=== PATIENT | female | born 1975 | race Caucasian/White ===

== ENCOUNTER → 2016-08-17 | Outpatient (CLI) | payer OTHER ==
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
== END ==
LOC: BMCIMAGING 19:06
PROVIDERS: ATTEND Family Medicine
DX: M54.2 Cervicalgia (principal); V89.2XXA Person injured in unspecified motor-vehicle accident, traffic, initial encounter